=== PATIENT | male | born 1960 | race Hispanic/Latino ===

== ENCOUNTER 2021-07-11 17:06 | Observation (INO) | payer OTHER ==
[~2021-07-11] VITALS: Ht 177.8 cm; Wt 71.2 kg
[2021-07-11] MEDS ORDERED: ONDANSETRON 4MG INJ IVP ONE (17:30)
[2021-07-11] MEDS ORDERED: 0.9%NACL 1000ML 1,000 ML IV ONE (17:30)
[2021-07-11 17:43] LABS: BASOPHILS % (AUTO) 0.3 % (0.0-5.0); EOSINOPHILS % (AUTO) 0.1 % (0.0-8.0); HEMATOCRIT 35.5 % (42-54); LYMPHOCYTES % (AUTO) 9.3 % (21.0-51.0); MEAN CORPUSCULAR HEMOGLOBIN 23.5 pg (27.0-33.0); MEAN CORPUSCULAR VOLUME 80.9 fL (79-99); MONOCYTES % (AUTO) 0.9 % (3.0-13.0); NEUTROPHILS % (AUTO) 87.8 % (40.0-77.0); NUCLEATED RED BLOOD CELLS 0.2 % (0.0-0.19); RED BLOOD CELL COUNT(AUTO) 4.39 MIL/uL (4.50-6.20); RED CELL DISTRIBUTION WIDTH 25.4 % (11.0-15.5); WHITE BLOOD COUNT (AUTO) 11.6 K/uL (4.8-10.8)
[2021-07-11 17:54] LABS: CREATININE 1.2 mg/dL (0.5-1.5); POTASSIUM 4.8 mmol/L (3.5-5.1)
[2021-07-11 17:58] LABS: ALBUMIN 2.8 g/dL (3.5-5.0); BILIRUBIN,TOTAL 0.7 mg/dL (0.2-1.0); PLATELET COUNT (AUTO) 701 K/uL (130-400); TOTAL PROTEIN, SERUM 9.1 g/dL (6.0-8.3)
[2021-07-11 18:01] LABS: PLATELET MORPHOLOGY COMMENT INCREASED
[2021-07-11] MEDS ORDERED: PROMETHAZINE HCL 25 MG/ML 1ML AMPULE IM ONE (18:30)
[2021-07-11] MEDS ORDERED: HYDROMORPHONE 1 MG INJ IVP ONE (18:30)
[2021-07-11] MEDS: 0.9%NACL 1000ML 1,000 ML IV SCH (20:59)
[2021-07-11] MEDS: ONDANSETRON 4MG INJ IVP SCH ×2 (20:59→23:20)
[2021-07-11] MEDS ORDERED: CYAN10007 IM (21:25)
[2021-07-11] MEDS ORDERED: HYDR-4068 PO (21:25)
[2021-07-11] MEDS ORDERED: METO50 PO (21:25)
[2021-07-11] MEDS ORDERED: ESCI20TA38 PO (21:25)
[2021-07-11] MEDS ORDERED: TEMA30CA PO (21:25)
[2021-07-11] MEDS ORDERED: FENT1PAT61 TP (21:25)
[2021-07-12] VITALS: BP 147/72
[2021-07-12] MEDS: ONDANSETRON 4MG INJ IVP SCH ×4 (03:33→15:27)
[2021-07-12 04:00] VITALS: BP 174/95
[2021-07-12] MEDS: 0.9%NACL 1000ML 1,000 ML IV SCH (05:00)
[2021-07-12] MEDS: HYDROMORPHONE 1 MG INJ IVP PRN ×4 (05:43→14:13)
[2021-07-12 07:10] VITALS: BP 157/82
[2021-07-12] MEDS ORDERED: PANTOPRAZOLE 40 MG/VIAL IVP SCH (09:00)
[2021-07-12 11:15] VITALS: BP 154/70
[2021-07-12 15:15] VITALS: BP 144/87
== END 2021-07-12 18:05 | disposition home or self-care (01) ==
LOC: EDH 17:06 → EDHIP 18:29 → 3DH 20:59
PROVIDERS: ADMIT Internal Medicine Hematology & Oncology; ATTEND Internal Medicine Hematology & Oncology
DX: R11.2 Nausea with vomiting, unspecified (principal); C25.9 Malignant neoplasm of pancreas, unspecified; I10 Essential (primary) hypertension; T45.1X5A Adverse effect of antineoplastic and immunosuppressive drugs, initial encounter; Z79.899 Other long term (current) drug therapy
CPT/HCPCS: 36415; 80053; 83735; 85025; 96372; 96374; 96375 ×2; 96376 ×2; 99285; C9113; G0378 ×21; J1170 ×5; J2405 ×7; J7030 ×3

== ENCOUNTER 2021-07-19 19:06 | Observation (INO) | payer OTHER ==
[~2021-07-19] VITALS: Ht 152.4 cm; Wt 66.7 kg
[~2021-07-19 19:06] MED LIST: CYAN10007 IM; ESCI20TA38 PO; FENT1PAT61 TP; HYDR-4068 PO; METO50 PO; TEMA30CA PO
[2021-07-19 20:16] LABS: BASOPHILS % (AUTO) 0.3 % (0.0-5.0); EOSINOPHILS % (AUTO) 1.3 % (0.0-8.0); HEMATOCRIT 29.8 % (42-54); LYMPHOCYTES % (AUTO) 10.4 % (21.0-51.0); MEAN CORPUSCULAR HEMOGLOBIN 23.7 pg (27.0-33.0); MEAN CORPUSCULAR HGB CONC 28.9 g/dL (32.0-36.0); MEAN CORPUSCULAR VOLUME 82.1 fL (79-99); MONOCYTES % (AUTO) 2.5 % (3.0-13.0); NEUTROPHILS % (AUTO) 84.6 % (40.0-77.0); PLATELET COUNT (AUTO) 280 K/uL (130-400); RED BLOOD CELL COUNT(AUTO) 3.63 MIL/uL (4.50-6.20); RED CELL DISTRIBUTION WIDTH 24.8 % (11.0-15.5); WHITE BLOOD COUNT (AUTO) 12.6 K/uL (4.8-10.8)
[2021-07-19 20:23] LABS: POTASSIUM 4.1 mmol/L (3.5-5.1)
[2021-07-19 20:29] LABS: ALBUMIN 2.7 g/dL (3.5-5.0); BILIRUBIN,TOTAL 0.4 mg/dL (0.2-1.0); MAGNESIUM 1.8 mg/dL (1.80-2.40); TOTAL PROTEIN, SERUM 8.4 g/dL (6.0-8.3)
[2021-07-19] MEDS ORDERED: HYDROMORPHONE 1 MG INJ IVP ONE ×2 (20:30→21:30)
[2021-07-19] MEDS ORDERED: ONDANSETRON 4MG INJ IVP ONE (20:30)
[2021-07-19] MEDS ORDERED: PROMETHAZINE HCL 25 MG/ML 1ML AMPULE IM ONE (21:30)
[2021-07-19] MEDS ORDERED: 0.9%NACL 100ML 100 ML ONE (21:31)
[2021-07-19] MEDS: 0.9%NACL 1000ML 1,000 ML IV SCH (22:27)
[2021-07-19 23:30] VITALS: BP 162/94
[2021-07-20] MEDS: ONDANSETRON 4MG INJ IVP PRN ×6 (00:23→21:34)
[2021-07-20] MEDS: HYDROMORPHONE 1 MG INJ IVP PRN ×6 (00:29→21:36)
[2021-07-20 04:00] VITALS: BP 142/79
[2021-07-20 07:25] VITALS: BP 158/88
[2021-07-20] MEDS: PANTOPRAZOLE 40 MG/VIAL IVP SCH (08:12)
[2021-07-20] MEDS: 0.9%NACL 1000ML 1,000 ML IV SCH ×3 (08:12→22:30)
[2021-07-20 11:40] VITALS: BP 138/87
[2021-07-20 12:29] LABS: HEMATOCRIT 26.6 % (42-54); MEAN CORPUSCULAR HGB CONC 28.9 g/dL (32.0-36.0); MEAN CORPUSCULAR VOLUME 82.9 fL (79-99); PLATELET COUNT (AUTO) 201 K/uL (130-400); RED BLOOD CELL COUNT(AUTO) 3.21 MIL/uL (4.50-6.20); RED CELL DISTRIBUTION WIDTH 24.9 % (11.0-15.5); WHITE BLOOD COUNT (AUTO) 9.4 K/uL (4.8-10.8)
[2021-07-20 13:16] LABS: EOSINOPHILS % (MANUAL) 4 % (1-6); LYMPHOCYTES % (MANUAL) 10 % (22-44); MAN.DIFF COMMENT-IMPRESSION MANUAL DIFFERENTIAL; MONOCYTES % (MANUAL) 1 % (2-9); PLATELET MORPHOLOGY COMMENT ADEQUATE; SEGMENTED NEUTROPHILS % 85 % (40-70)
[2021-07-20] MEDS ORDERED: IOHEXOL 350 MG/ML 100ML INFUS..BTL IV ONE (14:11)
[2021-07-20 19:45] VITALS: BP 163/93
[2021-07-20 23:25] VITALS: BP 150/80
[2021-07-21] MEDS: ONDANSETRON 4MG INJ IVP PRN ×3 (02:20→11:53)
[2021-07-21] MEDS: HYDROMORPHONE 1 MG INJ IVP PRN ×2 (02:21→07:35)
[2021-07-21 03:43] VITALS: BP 153/84
[2021-07-21 07:00] VITALS: BP 153/78
[2021-07-21] MEDS ORDERED: ESCITALOPRAM OXALATE PO SCH (09:30)
[2021-07-21] MEDS ORDERED: TEMAZEPAM 30 MG CAP PO PRN (09:30)
[2021-07-21] MEDS ORDERED: HYDROCODONE/ACETAMINOPHEN 10/325 MG TAB PO PRN (09:30)
[2021-07-21] MEDS ORDERED: FENTANYL 50 MCG/HR PATCH TD SCH (10:00)
[2021-07-21] MEDS: PANTOPRAZOLE 40 MG/VIAL IVP SCH (10:01)
[2021-07-21 11:00] VITALS: BP 133/70
[2021-07-21] MEDS ORDERED: METOPROLOL TARTRATE 50 MG TAB PO SCH (21:00)
[2021-07-22] MEDS ORDERED: CYANOCOBALAMIN (VITAMIN B-12) 1000 MCG/ML 1ML VIAL IM SCH (09:00)
[2021-07-28] MEDS ORDERED: HYDR-4068 PO (23:02)
[2021-07-28] MEDS ORDERED: METO5TAB2 PO (23:02)
[2021-07-28] MEDS ORDERED: ESCI20TA38 PO (23:02)
[2021-07-28] MEDS ORDERED: METO50TA18 PO (23:02)
[2021-07-28] MEDS ORDERED: TEMA30CA PO (23:02)
== END 2021-07-21 13:52 | disposition home or self-care (01) ==
LOC: EDH 19:06 → EDHIP 21:25 → 3DH 23:29
PROVIDERS: ADMIT Internal Medicine Hematology & Oncology; ATTEND Internal Medicine Hematology & Oncology
DX: R11.2 Nausea with vomiting, unspecified (principal); C25.9 Malignant neoplasm of pancreas, unspecified; I10 Essential (primary) hypertension; T45.1X5A Adverse effect of antineoplastic and immunosuppressive drugs, initial encounter; D64.9 Anemia, unspecified; Z85.07 Personal history of malignant neoplasm of pancreas; Z91.19 Patient's noncompliance with other medical treatment and regimen; Z90.49 Acquired absence of other specified parts of digestive tract; Z79.899 Other long term (current) drug therapy; Z98.890 Other specified postprocedural states; Z98.1 Arthrodesis status
CPT/HCPCS: 36415 ×2; 74018; 74177; 80053; 83735; 84484; 85025 ×2; 93005; 96361 ×3; 96372; 96374; 96375 ×2; 96376 ×3; 99285; C9113 ×2; G0378 ×38; J1170 ×10; J2405 ×10; J2550; J7030; Q9967

== ENCOUNTER 2021-08-01 08:06 | Observation (INO) | payer OTHER ==
[~2021-08-01] VITALS: Ht 177.8 cm; Wt 68.0 kg
[~2021-08-01 08:06] MED LIST changes: +METO50TA18 PO; +METO5TAB2 PO
[2021-08-01] MEDS ORDERED: 0.9%NACL 100ML 100 ML ONE (08:25)
[2021-08-01 08:27] LABS: BASOPHILS % (AUTO) 0.3 % (0.0-5.0); EOSINOPHILS % (AUTO) 0.1 % (0.0-8.0); HEMATOCRIT 29.5 % (42-54); LYMPHOCYTES % (AUTO) 3.9 % (21.0-51.0); MEAN CORPUSCULAR HEMOGLOBIN 24.3 pg (27.0-33.0); MEAN CORPUSCULAR HGB CONC 30.2 g/dL (32.0-36.0); MEAN CORPUSCULAR VOLUME 80.4 fL (79-99); MONOCYTES % (AUTO) 8.3 % (3.0-13.0); NEUTROPHILS % (AUTO) 85.7 % (40.0-77.0); PLATELET COUNT (AUTO) 399 K/uL (130-400); RED BLOOD CELL COUNT(AUTO) 3.67 MIL/uL (4.50-6.20); RED CELL DISTRIBUTION WIDTH 24.5 % (11.0-15.5); WHITE BLOOD COUNT (AUTO) 27.7 K/uL (4.8-10.8)
[2021-08-01] MEDS ORDERED: 0.9%NACL 1000ML 1,000 ML IV ONE (08:30)
[2021-08-01] MEDS ORDERED: HYDROMORPHONE 1 MG INJ IVP ONE (08:30)
[2021-08-01 09:10] LABS: POTASSIUM 3.4 mmol/L (3.5-5.1)
[2021-08-01 09:15] LABS: ALBUMIN 2.5 g/dL (3.5-5.0); BILIRUBIN,TOTAL 0.5 mg/dL (0.2-1.0); MAGNESIUM 1.5 mg/dL (1.80-2.40); TOTAL PROTEIN, SERUM 7.7 g/dL (6.0-8.3)
[2021-08-01] MEDS ORDERED: HYDROMORPHONE 2 MG VIAL (2MG/ML) IVP PRN (10:00)
[2021-08-01] MEDS: 0.9%NACL 1000ML 1,000 ML IV SCH (10:28)
[2021-08-01] MEDS: HYDROMORPHONE 1 MG INJ IVP PRN ×3 (13:55→21:26)
[2021-08-01 14:25] VITALS: BP 163/93
[2021-08-01 16:00] VITALS: BP 151/86
[2021-08-01] MEDS: ONDANSETRON 4MG INJ IVP PRN ×2 (16:37→21:23)
[2021-08-01 20:42] VITALS: BP 160/93
[2021-08-01 23:32] VITALS: BP 159/84
[2021-08-02] VITALS (19 sets, daily range): BP systolic 137–166; BP diastolic 78–112
[2021-08-02] MEDS: ONDANSETRON 4MG INJ IVP PRN ×3 (00:41→21:03)
[2021-08-02] MEDS: HYDROMORPHONE 1 MG INJ IVP PRN ×6 (00:42→21:09)
[2021-08-02] MEDS: 0.9%NACL 1000ML 1,000 ML IV SCH ×2 (00:45→10:46)
[2021-08-02] MEDS: PANTOPRAZOLE 40 MG/VIAL IVP SCH (08:30)
[2021-08-02] MEDS ORDERED: LIDOCAINE PF 100MG/5ML (2%) SYRINGE 5ML ONE (13:03)
[2021-08-02] MEDS ORDERED: PROPOFOL 10 MG/ML 20ML VIAL IV ONE ×2 (13:03)
[2021-08-02 13:52] LABS: HEMATOCRIT 23.9 % (42-54); MEAN CORPUSCULAR HEMOGLOBIN 24.5 pg (27.0-33.0); MEAN CORPUSCULAR HGB CONC 28.9 g/dL (32.0-36.0); MEAN CORPUSCULAR VOLUME 84.8 fL (79-99); PLATELET COUNT (AUTO) 311 K/uL (130-400); RED BLOOD CELL COUNT(AUTO) 2.82 MIL/uL (4.50-6.20); RED CELL DISTRIBUTION WIDTH 24.8 % (11.0-15.5); WHITE BLOOD COUNT (AUTO) 22.2 K/uL (4.8-10.8)
[2021-08-02 14:50] LABS: LYMPHOCYTES % (MANUAL) 4 % (22-44); MAN.DIFF COMMENT-IMPRESSION MANUAL DIFFERENTIAL; MONOCYTES % (MANUAL) 8 % (2-9); SEGMENTED NEUTROPHILS % 88 % (40-70)
[2021-08-02 14:51] LABS: PLATELET MORPHOLOGY COMMENT ADEQUATE
[2021-08-02 16:23] LABS: HEMATOCRIT 25.5 % (42-54)
[2021-08-02] MEDS ORDERED: 0.9% NACL 250ML 250 ML ONE (19:49)
[2021-08-03] VITALS: BP 160/95
[2021-08-03] MEDS: ONDANSETRON 4MG INJ IVP PRN ×3 (02:04→09:27)
[2021-08-03] MEDS: HYDROMORPHONE 1 MG INJ IVP PRN ×3 (02:04→09:27)
[2021-08-03 04:00] VITALS: BP 173/92
[2021-08-03 04:43] LABS: BASOPHILS % (AUTO) 0.4 % (0.0-5.0); EOSINOPHILS % (AUTO) 1.8 % (0.0-8.0); HEMATOCRIT 27.9 % (42-54); MEAN CORPUSCULAR HEMOGLOBIN 24.8 pg (27.0-33.0); MEAN CORPUSCULAR VOLUME 85.6 fL (79-99); MONOCYTES % (AUTO) 9.9 % (3.0-13.0); NEUTROPHILS % (AUTO) 78.6 % (40.0-77.0); PLATELET COUNT (AUTO) 307 K/uL (130-400); RED BLOOD CELL COUNT(AUTO) 3.26 MIL/uL (4.50-6.20); RED CELL DISTRIBUTION WIDTH 23.5 % (11.0-15.5)
[2021-08-03 04:50] LABS: CREATININE 0.8 mg/dL (0.5-1.5)
[2021-08-03] MEDS ORDERED: POTASSIUM CHLORIDE 20MEQ/100ML 100 ML IV PRN ×2 (05:00)
[2021-08-03] MEDS ORDERED: POTASSIUM CHLORIDE 10MEQ/100ML 100 ML IV PRN ×2 (05:00)
[2021-08-03] MEDS ORDERED: POTASSIUM CHLORIDE 10% ELIXIR 20 MEQ/15 ML UDCUP PO PRN ×2 (05:00)
[2021-08-03] MEDS ORDERED: MAGNESIUM 2GM PREMIX 50ML 50 ML IV PRN (05:00)
[2021-08-03] MEDS ORDERED: LIDOCAINE HCL-MPF 1% 2ML VIAL IV PRN ×4 (05:00)
[2021-08-03] MEDS ORDERED: KCL 20 MEQ ERTAB PO PRN ×2 (05:00)
[2021-08-03 07:00] VITALS: BP 186/106
[2021-08-03] MEDS: PANTOPRAZOLE 40 MG/VIAL IVP SCH (09:12)
[2021-08-03] MEDS ORDERED: FUROSEMIDE 20MG VIAL IV SCH (10:30)
[2021-08-03 11:00] VITALS: BP 175/111
== END 2021-08-03 14:39 | disposition home or self-care (01) ==
LOC: EDH 08:06 → EDHIP 09:33 → 3CH 14:38
PROVIDERS: ADMIT Internal Medicine Hematology & Oncology; ATTEND Internal Medicine Hematology & Oncology
DX: K21.00 Gastro-esophageal reflux disease with esophagitis, without bleeding (principal); Z20.822 Contact with and (suspected) exposure to COVID-19; K31.89 Other diseases of stomach and duodenum; C25.9 Malignant neoplasm of pancreas, unspecified; C78.7 Secondary malignant neoplasm of liver and intrahepatic bile duct; I10 Essential (primary) hypertension; D64.9 Anemia, unspecified; F32.A Depression, unspecified; K29.70 Gastritis, unspecified, without bleeding; Z88.5 Allergy status to narcotic agent; Z91.19 Patient's noncompliance with other medical treatment and regimen; Z98.1 Arthrodesis status; Z79.899 Other long term (current) drug therapy
CPT/HCPCS: 36415 ×3; 36430 ×2; 43239; 74240; 80048; 80053; 83735; 85014; 85018; 85025 ×3; 86850; 86900; 86901; 86923 ×3; 87635; 96361 ×3; 96374; 96375 ×3; 96376 ×3; 99284; A4215; A4620; A4657; C9113 ×2; G0378 ×40; J1170 ×14; J1940; J2001; J2405 ×9; J2704 ×2; J7030; J7050; P9016 ×3

== ENCOUNTER 2021-08-07 07:11 | Emergency (ER) | payer OTHER ==
[~2021-08-07] VITALS: Ht 177.8 cm; Wt 63.5 kg
[2021-08-07] MEDS ORDERED: HYDROMORPHONE 1 MG INJ IVP SCH ×2 (08:00→09:30)
[2021-08-07] MEDS ORDERED: 0.9%NACL 1000ML 1,000 ML IV SCH (08:00)
[2021-08-07 08:05] LABS: BASOPHILS % (AUTO) 0.5 % (0.0-5.0); EOSINOPHILS % (AUTO) 0.2 % (0.0-8.0); HEMATOCRIT 42.9 % (42-54); LYMPHOCYTES % (AUTO) 7.1 % (21.0-51.0); MEAN CORPUSCULAR HEMOGLOBIN 25.2 pg (27.0-33.0); MEAN CORPUSCULAR HGB CONC 30.3 g/dL (32.0-36.0); MEAN CORPUSCULAR VOLUME 83.1 fL (79-99); MONOCYTES % (AUTO) 6.8 % (3.0-13.0); NEUTROPHILS % (AUTO) 84.5 % (40.0-77.0); PLATELET COUNT (AUTO) 282 K/uL (130-400); RED BLOOD CELL COUNT(AUTO) 5.16 MIL/uL (4.50-6.20); WHITE BLOOD COUNT (AUTO) 20.8 K/uL (4.8-10.8)
[2021-08-07 09:17] LABS: ALBUMIN 2.1 g/dL (3.5-5.0); BILIRUBIN,TOTAL 0.6 mg/dL (0.2-1.0); CREATININE 0.8 mg/dL (0.5-1.5); MAGNESIUM 1.7 mg/dL (1.80-2.40); POTASSIUM 3.5 mmol/L (3.5-5.1); TOTAL PROTEIN, SERUM 8.1 g/dL (6.0-8.3)
[2021-08-07] MEDS ORDERED: KETOROLAC 15MG/ML VIAL (15MG/ML) IV SCH (09:30)
[2021-08-07] MEDS ORDERED: KETOROLAC 15MG/ML VIAL (15MG/ML) ONE (09:35)
[2021-08-07] MEDS ORDERED: FENTANYL 75 MCG/HR PATCH TD ONE (09:35)
[2021-08-07] MEDS ORDERED: DICL50TA9 PO (10:10)
[2021-08-07 10:18] VITALS: BP 124/78
[2021-08-10] MEDS ORDERED: FENTANYL 75 MCG/HR PATCH TD SCH (09:30)
[2021-08-16] MEDS ORDERED: PANT40TA55 PO (12:54)
== END 2021-08-07 10:20 | disposition home or self-care (01) ==
LOC: EDH 07:11
DX: R10.84 Generalized abdominal pain (principal); R11.10 Vomiting, unspecified; F41.9 Anxiety disorder, unspecified; I10 Essential (primary) hypertension; Z79.899 Other long term (current) drug therapy; Z85.07 Personal history of malignant neoplasm of pancreas; Z88.5 Allergy status to narcotic agent; Z90.49 Acquired absence of other specified parts of digestive tract
CPT/HCPCS: 36415; 80053; 83690; 83735; 85025; 96374; 96375; 96376; 99284; J1170 ×2; J1885; J7030

== ENCOUNTER 2021-08-13 21:35 | Emergency (ER) | payer OTHER ==
[~2021-08-13] VITALS: Ht 177.8 cm; Wt 68.0 kg
[~2021-08-13 21:35] MED LIST changes: +DICL50TA9 PO
[2021-08-13 22:25] LABS: BASOPHILS % (AUTO) 0.4 % (0.0-5.0); EOSINOPHILS % (AUTO) 0.1 % (0.0-8.0); HEMATOCRIT 32.6 % (42-54); LYMPHOCYTES % (AUTO) 6.6 % (21.0-51.0); MEAN CORPUSCULAR HEMOGLOBIN 25.2 pg (27.0-33.0); MEAN CORPUSCULAR HGB CONC 30.1 g/dL (32.0-36.0); MEAN CORPUSCULAR VOLUME 83.8 fL (79-99); MONOCYTES % (AUTO) 1.3 % (3.0-13.0); NEUTROPHILS % (AUTO) 90.9 % (40.0-77.0); PLATELET COUNT (AUTO) 262 K/uL (130-400); RED BLOOD CELL COUNT(AUTO) 3.89 MIL/uL (4.50-6.20); RED CELL DISTRIBUTION WIDTH 21.4 % (11.0-15.5); WHITE BLOOD COUNT (AUTO) 13.9 K/uL (4.8-10.8)
[2021-08-13 22:30] LABS: APPEARANCE,URINE Clear (CLEAR); BILIRUBIN,URINE Negative (NEGATIVE); COLOR,URINE Yellow (YELLOW); GLUCOSE, URINE (UA) Negative (NEGATIVE); KETONES,URINE Negative (NEGATIVE); LEUKOCYTE ESTERASE ,URINE Negative (NEGATIVE); NITRATE,URINE Negative (NEGATIVE); OCCULT BLOOD,URINE Negative (NEGATIVE); PH,URINE 6.5 (5.0-8.0); PROTEIN,URINE Negative (NEGATIVE); UROBILINOGEN,URINE 0.2 mg/dL (0.2-1.0)
[2021-08-13 22:39] LABS: CREATININE 0.9 mg/dL (0.5-1.5); POTASSIUM 4.4 mmol/L (3.5-5.1)
[2021-08-13 22:44] LABS: ALBUMIN 2.1 g/dL (3.5-5.0); BILIRUBIN,TOTAL 0.3 mg/dL (0.2-1.0); TOTAL PROTEIN, SERUM 7.1 g/dL (6.0-8.3)
[2021-08-13] MEDS ORDERED: HYDROMORPHONE 1 MG INJ IVP ONE (23:30)
[2021-08-13] MEDS ORDERED: ONDANSETRON 4MG INJ IVP ONE (23:30)
[2021-08-14] MEDS ORDERED: HYDROMORPHONE 0.5 MG SYG (0.5MG/0.5ML) IVP ONE (01:30)
[2021-08-14] MEDS ORDERED: PANTOPRAZOLE 40 MG/VIAL IVP ONE (01:30)
[2021-08-14] MEDS ORDERED: KETOROLAC 15MG/ML VIAL (15MG/ML) IV ONE (01:30)
[2021-08-14 02:55] VITALS: BP 134/78
[2021-08-16] MEDS ORDERED: PANT40TA55 PO (12:54)
== END 2021-08-14 02:57 | disposition home or self-care (01) ==
LOC: EDH 21:35
DX: R10.13 Epigastric pain (principal); R10.11 Right upper quadrant pain; I10 Essential (primary) hypertension; Z85.07 Personal history of malignant neoplasm of pancreas; Z88.6 Allergy status to analgesic agent; Z79.899 Other long term (current) drug therapy; Z98.890 Other specified postprocedural states
CPT/HCPCS: 36415; 80053; 81003; 82150; 83690; 85025; 96374; 96375 ×2; 96376; 99285; C9113; J1170 ×2; J1885; J2405

== ENCOUNTER 2021-08-17 14:54 | Observation (INO) | payer OTHER ==
[~2021-08-17] VITALS: Ht 177.8 cm; Wt 64.8 kg
[~2021-08-17 14:54] MED LIST changes: +PANT40TA55 PO
[2021-08-17] MEDS ORDERED: HYDROMORPHONE 1 MG INJ ONE ×2 (15:28→16:47)
[2021-08-17] MEDS ORDERED: 0.9%NACL 1000ML 1,000 ML IV SCH (15:30)
[2021-08-17] MEDS ORDERED: HYDROMORPHONE 1 MG INJ IVP SCH (15:30)
[2021-08-17] MEDS ORDERED: ONDANSETRON 4MG INJ IVP SCH (15:30)
[2021-08-17] MEDS ORDERED: KETOROLAC 15MG/ML VIAL (15MG/ML) IV SCH (15:30)
[2021-08-17 15:39] LABS: CREATININE 0.8 mg/dL (0.5-1.5); POTASSIUM 3.8 mmol/L (3.5-5.1)
[2021-08-17 15:43] LABS: ALBUMIN 2.4 g/dL (3.5-5.0); BILIRUBIN,TOTAL 0.6 mg/dL (0.2-1.0)
[2021-08-17] MEDS ORDERED: ONDANSETRON 4MG INJ IVP PRN (16:00)
[2021-08-17] MEDS ORDERED: HYDROMORPHONE 2 MG VIAL (2MG/ML) IVP PRN (16:00)
[2021-08-17] MEDS: 0.9%NACL 1000ML 1,000 ML IV SCH (16:48)
[2021-08-17 16:49] LABS: BASOPHILS % (AUTO) 0.2 % (0.0-5.0); EOSINOPHILS % (AUTO) 0.2 % (0.0-8.0); HEMATOCRIT 32.5 % (42-54); LYMPHOCYTES % (AUTO) 4.6 % (21.0-51.0); MEAN CORPUSCULAR HEMOGLOBIN 25.1 pg (27.0-33.0); MEAN CORPUSCULAR HGB CONC 30.2 g/dL (32.0-36.0); MEAN CORPUSCULAR VOLUME 83.1 fL (79-99); MONOCYTES % (AUTO) 4.8 % (3.0-13.0); NEUTROPHILS % (AUTO) 89.8 % (40.0-77.0); PLATELET COUNT (AUTO) 178 K/uL (130-400); RED BLOOD CELL COUNT(AUTO) 3.91 MIL/uL (4.50-6.20); RED CELL DISTRIBUTION WIDTH 20.5 % (11.0-15.5); WHITE BLOOD COUNT (AUTO) 13.3 K/uL (4.8-10.8)
[2021-08-17] MEDS: HYDROMORPHONE 1 MG INJ IVP PRN ×2 (16:56→21:07)
[2021-08-17] MEDS ORDERED: FENTANYL 75 MCG/HR PATCH TD SCH (17:00)
[2021-08-17] MEDS ORDERED: FENTANYL 75 MCG/HR PATCH TD ONE (18:32)
[2021-08-17] MEDS: METOPROLOL TARTRATE 50 MG TAB PO SCH (19:58)
[2021-08-17] MEDS: DICLOFENAC POTASSIUM 50 MG PO SCH (20:00)
[2021-08-17] MEDS: HYDROCODONE/ACETAMINOPHEN 10/325 MG TAB PO PRN (20:24)
[2021-08-17 21:20] VITALS: BP 164/85
[2021-08-17 21:34] VITALS: BP 164/85
[2021-08-18] VITALS: BP 166/109
[2021-08-18] MEDS: HYDROCODONE/ACETAMINOPHEN 10/325 MG TAB PO PRN (00:37)
[2021-08-18] MEDS: HYDROMORPHONE 1 MG INJ IVP PRN ×3 (01:12→09:31)
[2021-08-18] MEDS: 0.9%NACL 1000ML 1,000 ML IV SCH (02:00)
[2021-08-18 03:58] VITALS: BP 167/77
[2021-08-18 04:13] VITALS: BP 167/66
[2021-08-18] MEDS ORDERED: HYDRALAZINE 25MG TABLET PO PRN (04:30)
[2021-08-18 05:11] LABS: APPEARANCE,URINE Clear (CLEAR); BILIRUBIN,URINE Negative (NEGATIVE); COLOR,URINE Yellow (YELLOW); GLUCOSE, URINE (UA) Negative (NEGATIVE); KETONES,URINE Negative (NEGATIVE); LEUKOCYTE ESTERASE ,URINE Negative (NEGATIVE); NITRATE,URINE Negative (NEGATIVE); OCCULT BLOOD,URINE Negative (NEGATIVE); PROTEIN,URINE Negative (NEGATIVE); UROBILINOGEN,URINE 0.2 mg/dL (0.2-1.0)
[2021-08-18 07:30] VITALS: BP 144/95
[2021-08-18] MEDS ORDERED: ESCITALOPRAM 20MG TAB PO SCH (09:00)
[2021-08-18] MEDS: DICLOFENAC POTASSIUM 50 MG PO SCH (09:00)
[2021-08-18] MEDS ORDERED: FENTANYL 75 MCG/HR PATCH TD SCH (09:00)
[2021-08-18] MEDS ORDERED: PANTOPRAZOLE 40 MG TAB DR PO SCH (09:00)
[2021-08-18] MEDS: METOPROLOL TARTRATE 50 MG TAB PO SCH (09:31)
[2021-08-18 11:20] VITALS: BP 168/86
== END 2021-08-18 13:01 | disposition home or self-care (01) ==
LOC: EDH 14:54 → EDHIP 16:00 → 3DH 21:06
PROVIDERS: ADMIT Internal Medicine Hematology & Oncology; ATTEND Internal Medicine Hematology & Oncology
DX: C25.9 Malignant neoplasm of pancreas, unspecified (principal); C78.7 Secondary malignant neoplasm of liver and intrahepatic bile duct; G89.3 Neoplasm related pain (acute) (chronic); E46 Unspecified protein-calorie malnutrition; I10 Essential (primary) hypertension; F41.9 Anxiety disorder, unspecified; Z79.899 Other long term (current) drug therapy
CPT/HCPCS: 36415; 80053; 81003; 83690; 85025; 96361 ×2; 96374; 96375; 96376; 99284; G0378 ×21; J1170 ×6; J1885; J2405 ×2

== ENCOUNTER 2021-08-28 04:56 | Emergency (ER) | payer OTHER ==
[~2021-08-28] VITALS: Ht 175.3 cm; Wt 54.9 kg
[2021-08-28] MEDS ORDERED: HYDROMORPHONE 1 MG INJ ONE (05:23)
[2021-08-28] MEDS ORDERED: ONDANSETRON 4MG INJ ONE (05:23)
[2021-08-28] MEDS ORDERED: ONDANSETRON 4MG INJ IVP ONE (05:30)
[2021-08-28] MEDS ORDERED: 0.9%NACL 1000ML 1,000 ML IV ONE (05:30)
[2021-08-28] MEDS ORDERED: HYDROMORPHONE 1 MG INJ IVP ONE ×3 (05:30→07:00)
[2021-08-28 07:15] VITALS: BP 122/67
[2021-08-29] MEDS ORDERED: DICL50TA7 PO (03:11)
== END 2021-08-28 07:49 | disposition home or self-care (01) ==
LOC: EDH 04:56
DX: R10.13 Epigastric pain (principal); R10.11 Right upper quadrant pain; C25.9 Malignant neoplasm of pancreas, unspecified; F41.9 Anxiety disorder, unspecified; I10 Essential (primary) hypertension; Z88.6 Allergy status to analgesic agent; Z79.899 Other long term (current) drug therapy; Z90.89 Acquired absence of other organs
CPT/HCPCS: 96361; 96374; 96375; 96376; 99284; J1170 ×3; J2405; J7030

== ENCOUNTER 2021-08-28 22:55 | Observation (INO) | payer OTHER ==
[~2021-08-28] VITALS: Ht 177.8 cm; Wt 64.2 kg
[2021-08-29] MEDS ORDERED: KETOROLAC 15MG/ML VIAL (15MG/ML) IV ONE
[2021-08-29 00:22] LABS: ALBUMIN 1.6 g/dL (3.5-5.0); BILIRUBIN,TOTAL 0.3 mg/dL (0.2-1.0); CREATININE 0.6 mg/dL (0.5-1.5); TOTAL PROTEIN, SERUM 5.9 g/dL (6.0-8.3)
[2021-08-29 00:27] LABS: POTASSIUM 2.7 mmol/L (3.5-5.1)
[2021-08-29] MEDS ORDERED: KCL 20 MEQ ERTAB PO ONE ×2 (00:28→01:00)
[2021-08-29 00:33] LABS: BASOPHILS % (AUTO) 0.4 % (0.0-5.0); EOSINOPHILS % (AUTO) 3.4 % (0.0-8.0); HEMATOCRIT 33.1 % (42-54); LYMPHOCYTES % (AUTO) 5.8 % (21.0-51.0); MEAN CORPUSCULAR HEMOGLOBIN 26.2 pg (27.0-33.0); MEAN CORPUSCULAR HGB CONC 31.4 g/dL (32.0-36.0); MEAN CORPUSCULAR VOLUME 83.4 fL (79-99); MONOCYTES % (AUTO) 9.4 % (3.0-13.0); PLATELET COUNT (AUTO) 368 K/uL (130-400); RED BLOOD CELL COUNT(AUTO) 3.97 MIL/uL (4.50-6.20); RED CELL DISTRIBUTION WIDTH 20.4 % (11.0-15.5); WHITE BLOOD COUNT (AUTO) 25.1 K/uL (4.8-10.8)
[2021-08-29 00:53] LABS: BAND NEUTROPHILS % (MANUAL) 15 % (0-2); EOSINOPHILS % (MANUAL) 3 % (1-6); LYMPHOCYTES % (MANUAL) 6 % (22-44); MAN.DIFF COMMENT-IMPRESSION MANUAL DIFFERENTIAL; MONOCYTES % (MANUAL) 7 % (2-9); PLATELET MORPHOLOGY COMMENT ADEQUATE; SEGMENTED NEUTROPHILS % 69 % (40-70)
[2021-08-29] MEDS ORDERED: HYDROMORPHONE 1 MG INJ IVP ONE ×2 (01:00)
[2021-08-29] MEDS ORDERED: MAGNESIUM 4GM PREMIX 100ML 100 ML IV PRN (01:00)
[2021-08-29] MEDS ORDERED: MAGNESIUM 2GM PREMIX 50ML 100 ML IV ONE (01:08)
[2021-08-29] MEDS ORDERED: ONDANSETRON 4MG INJ IVP PRN (02:00)
[2021-08-29] MEDS: 0.9%NACL 1000ML 1,000 ML IV SCH ×2 (02:20→15:25)
[2021-08-29 02:45] VITALS: BP 173/105
[2021-08-29] MEDS ORDERED: DICL50TA7 PO (03:11)
[2021-08-29] MEDS ORDERED: HYDRALAZINE HCL 10 MG TABLET PO PRN (04:00)
[2021-08-29] MEDS: HYDROMORPHONE 0.5 MG SYG (0.5MG/0.5ML) IVP PRN ×2 (05:02→09:02)
[2021-08-29 08:00] VITALS: BP 181/108
[2021-08-29] MEDS: KCL 20 MEQ ERTAB PO SCH ×2 (08:59→21:58)
[2021-08-29] MEDS: HYDROMORPHONE 2 MG VIAL (2MG/ML) IVP PRN ×4 (11:16→22:57)
[2021-08-29] MEDS ORDERED: TEMAZEPAM 30 MG CAP PO PRN (11:30)
[2021-08-29] MEDS ORDERED: HYDROCODONE/ACETAMINOPHEN 10/325 MG TAB PO PRN (11:30)
[2021-08-29 12:00] VITALS: BP 165/92
[2021-08-29] MEDS: METOCLOPRAMIDE 5 MG TABLET PO SCH ×2 (13:05→17:14)
[2021-08-29 16:00] VITALS: BP 166/92
[2021-08-29 20:00] VITALS: BP 162/96
[2021-08-29] MEDS: METOPROLOL TARTRATE 50 MG TAB PO SCH (21:59)
[2021-08-29] MEDS: DICLOFENAC 50 MG PO SCH (22:01)
[2021-08-29] MEDS ORDERED: TEMAZEPAM 15 MG CAPSULE ONE (22:05)
[2021-08-30] VITALS: BP 157/81
[2021-08-30] MEDS: HYDROMORPHONE 2 MG VIAL (2MG/ML) IVP PRN ×3 (02:20→10:51)
[2021-08-30 04:00] VITALS: BP 142/88
[2021-08-30] MEDS: METOCLOPRAMIDE 5 MG TABLET PO SCH ×2 (06:03→10:51)
[2021-08-30 07:56] LABS: MAGNESIUM 1.9 mg/dL (1.80-2.40); POTASSIUM 4.8 mmol/L (3.5-5.1)
[2021-08-30 08:00] VITALS: BP 141/69
[2021-08-30] MEDS: KCL 20 MEQ ERTAB PO SCH (08:06)
[2021-08-30] MEDS: METOPROLOL TARTRATE 50 MG TAB PO SCH (08:07)
[2021-08-30] MEDS: DICLOFENAC 50 MG PO SCH (08:08)
[2021-08-30] MEDS ORDERED: CYANOCOBALAMIN (VITAMIN B-12) 1000 MCG/ML 1ML VIAL IM SCH (09:00)
[2021-08-30] MEDS ORDERED: PANTOPRAZOLE 40 MG TAB DR PO SCH (09:00)
[2021-08-30] MEDS ORDERED: CITALOPRAM 20 MG TABLET PO SCH (09:00)
[2021-08-30 12:00] VITALS: BP 136/77
== END 2021-08-30 13:00 | disposition home or self-care (01) ==
LOC: EDH 22:55 → EDHIP 08-29 01:10 → 3DH 08-29 01:57
PROVIDERS: ADMIT Internal Medicine Hematology & Oncology; ATTEND Internal Medicine Hematology & Oncology
DX: S22.32XA Fracture of one rib, left side, initial encounter for closed fracture (principal); C25.9 Malignant neoplasm of pancreas, unspecified; G89.3 Neoplasm related pain (acute) (chronic); E83.42 Hypomagnesemia; E87.6 Hypokalemia; I10 Essential (primary) hypertension; D72.829 Elevated white blood cell count, unspecified; W18.30XA Fall on same level, unspecified, initial encounter; Y93.89 Activity, other specified; Y92.009 Unspecified place in unspecified non-institutional (private) residence as the place of occurrence of the external cause
CPT/HCPCS: 36415 ×2; 71100; 80053; 83690; 83735 ×2; 84132; 85025; 96361 ×2; 96365; 96372; 96375; 96376 ×2; 99284; G0378 ×35; J1170 ×11; J1885; J3420; J3475; J7030 ×2